=== PATIENT | female | born 1980 | race Caucasian/White ===

== ENCOUNTER 2024-10-28 14:01 | Outpatient (AMB) | payer OTHER, SELFPAY ==
--- OUTSIDE RECORDS SUMMARY | 2024-10-24 23:59 | XMS_ITS | Continuity of Care Document ---
Author Organization [facility] Primary Car e [address] Address [address] [place] [address]- Care Team Providers Care Bar Pointer Name Role Phone Benjamin Baltazar NP Primary Care Physician Encounter [facility] Date(s): 09/24/24 - 10/24/24 [facility] [address] [place], [place] [address] Encounter Type: Triage Allergies, Adverse Reactions, Alerts Substance Criticality Severity Reaction Reaction Severity Status naproxen Rash Active amoxicillin Active penicillins Active oxyCODONE Serum Sickness Activ e Vicodin Skin rash Active Latex Active OxyCODONE Hydrochloride Active Immunizations Given and Recorded Vaccine Date Status Refusal Reason SARS-CoV-2 (COVID-19) mRNA-1273 vaccine 03/10/21 R ecorded SARS-CoV-2 (COVID-19) mRNA-1273 vaccine 02/10/21 R ecorded influenza virus vaccine, inactivated 04/17/13 Thierno rded tetanus/diphtheria/pertussis, acel(Tdap) 01/19/12 Recorded Measles/Mumps/Rubella Virus Vaccine 06/17/01 Recor ded Measles/Mumps/Rubella Virus Vaccine 04/02/94 Recor ded hepatitis B adult vaccine 05/20/01 Recorded Medications B-12 2500 mcg oral tablet 1 tablet = 2,500 mcg, By Mouth, Daily, # 60 tablet, 0 Refills, Maintenance, 05/16/22 12:50:00 PM EST, Tablet, Partial fill upon patient request if the prescription is for a schedule II opioid drug. Start Date: 05/16/22 Status: Ordered Quantity: 60.0 Unit: tablet Repeat number: 1 Centrum Women 50 Plus Multigummies 0 Refills, Maintenance, 05/16/22 12:51:00 PM EST, Partial fill upon patient request if the prescription is for a schedule II opioid drug. Start Date: 05/16/22 Status: Ordered Repeat number: 1 Collagen 0 Refills, Maintenance, 05/16/22 12:49:00 PM EST, Partial fill upon patient request if the prescription is for a schedule II opioid drug. Start Date: 05/16/22 Status: Ordered Repeat number: 1 Folate Forte oral tablet 1 tablet, By Mouth, Daily, 0 Refills, Maintenance, 05/16/22 12:50:00 PM EST, Partial fill upon patient request if the prescription is for a schedule II opioid drug. Start Date: 05/16/22 Status: Ordered Repeat number: 1 magnesium aspartate = 1,230 mg, By Mouth, 2 times a day, 0 Refills, Maintenance, 05/16/22 12:51:00 PM EST, Partial fill upon patient request if the prescription is for a schedule II opioid drug. Start Date: 05/16/22 Status: Ordered Repeat number: 1 meclizine 25 mg oral tablet 1 tablet = 25 mg, By Mouth, 3 times a day, PRN for dizziness, # 60 tablet, 1 Refills, Maintenance, 09/22/24 1:46:00 PM EDT, Tablet, [facility]/pharmacy #[id number], Partial fill upon patient request if the prescription is for a schedule II opioid drug., 170, cm, 05/27/24 15:11:00 EST, Height Start Date: 09/22/24 Status: Ordered Quantity: 60.0 Unit: tablet Repeat number: 2 Indications: Benign paroxysmal vertigo, unspecified ear; Papaya 0 Refills, Maintenance, 05/16/22 12:50:00 PM EST, Partial fill upon patient request if the prescription is for a schedule II opioid drug. Start Date: 05/16/22 Status: Ordered Repeat number: 1 SUMAtriptan 100 mg oral tablet 1 tablet = 100 mg, By Mouth, Daily, PRN for migraine headache, may repeat dose after 2 hours up to a maximum of 2, # 18 tablet, 0 Refills, Maintenance, 05/17/23 7:31:00 AM EST, Tablet, Partial fill upon patient request if the prescription is for a schedule II opioid drug. Start Date: 05/17/23 Status: Ordered Quantity: 18.0 Unit: tablet Repeat number: 1 traMADol 50 mg oral tablet 60 each, 0 Refill(s), TAKE 1 TABLET BY MOUTH EVERY 12 HOURS NEEDED FOR PAIN FOR 30 DAYS, 0 Refills, 08/13/23 9:35:00 AM EDT, Partial fill upon patient request if the prescription is for a schedule II opioid drug. Start Date: 08/13/23 Status: Ordered Repeat number: 1 Wellbutrin XL 150 mg/24 hours oral tablet, extended release 1 tablet = 150 mg, By Mouth, Every 24 hours, # 90 tablet, 1 Refills, Maintenance, 09/24/24 6:58:00 AM EDT, ER Tablet, [facility]/pharmacy #[id number], Partial fill upon patient request if the prescription is for aschedule II opioid drug., 170, cm, 05/27/24 15:11:00 EST, Height Start Date: 09/24/24 Stop Date: 03/23/25 Status: Ordered Quantity: 90.0 Unit: tablet Repeat number: 2 Problem List Condition Confirmation Course Effective Dates Status Health St atus Informant B12 deficiency Confirmed Active Depression Confirmed Active Nipple discharge in female Confirmed Active Esophageal reflux (GERD) Confirmed Active Migraines Confirmed Active Obese class II Confirmed Active Varicose veins Confirmed Active Vitamin D deficiency Confirmed Active Social History Social History Type Response Smoking Status Former smoker, quit more than 30 days ago; Started at age: 17; Stopped at age: 21; entered on: 05/16/22 Sex Sex Representation Female (finding) Patient Care team information Care Team Personnel Name: Benjamin Baltazar NP Position: [facility] PCO Associate Professional Member Role: PCP Address: [address] [place] [address] Primary Care [place], [place] [address] Telecom: Name: Massiel Da Silva [place] Position: [facility] [place] Member Role: Lifetime Consulting Physician Care Team Related Persons Name: NITIN ISAAC Insurance Providers Guarantor name: REBECCA ISAAC [facility] Plan Information #: 1 Payer: MITALI RADHA [facility] Payer Identifier: NA Member Number: [id number] Group Number: [id number] Subscriber Identifier: [id number] Relationship to Subscriber: self Coverage Type: NA Coverage Verification Date: NA Telecom: NA Address:
--- NOTE | 2024-10-28 14:02 | A.OFFVIS_ITS ---
Vital Signs 10/28/24 14:06 Height 5 ft 7 in Intake Visit Reasons: 6m Allergies acetaminophen (From Vicodin) Allergy (Intermediate, Verified 10/28/24 14:06) Stomach Upset cortisone Allergy (Intermediate, Verified 10/28/24 14:06) Rash hydrocodone (From Vicodin) Allergy (Intermediate, Verified 10/28/24 14:06) Stomach Upset Medication List - Last Reconciled 10/28/24 by Lupe Armando, HALEY ibuprofen 400 mg PO Q6H PRN meclizine 25 mg PO TID PRN ondansetron 4 mg PO Q8H sumatriptan succinate take 1 tab at onset of headache; if no relief, may repeat 1 tab after at least 2 hrs; max = 2 tabs/24 hrs PO HPI Comments Details: Migraines have been about 2x/month, but increased this month. She had 12 migraines this month with photophobia, sonophobia, increased sensitivity to sound, dizziness, nausea, and vomiting. Gets some starbursts in vision before migraine. Unable to take sumatriptan due to nausea/vomiting. Using ondansetron. Triggers include bright lights, certain smells, and weather/pressure changes. She feels like hearing has gotten worse over the last 6 months. Tinnitus in both ears comes and goes throughout the day. No significant episodes of vertigo. Sleep was okay, getting about 7 hours/night. Stress was up and down. 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 No work performance issues, getting tasks done on time. She had hearing test with Dr. Velázquez in 2023 that was apparently normal, report not available. She has had tinnitus in both ears constantly since 08/2022 and had a bout of vertigo in 08/2022. Hx of migraine headaches, some of which are associated with visual disturbance, graying out or partial loss of vision for about 30 minutes, with intense pounding headache associated with nausea and vomiting on multiple occasions, along with photophobia and sonophobia. She has to go to bed in a quiet, dark room and cannot function. She used to get a few migraines in her childhood, but it had not been a problem until 08/2022. Around 2018, she had lumbar disc surgery with fusion at L5-S1 by Dr. Meehan. Her sisters have headaches. [facility] Medical History (Updated 10/28/24 @ 14:05 by Lupe Armando CNP) Tinnitus of both ears Arnold-Chiari malformation, type I Migraine Varicose vein of leg Surgical History S/P tonsillectomy and adenoidectomy History of shoulder surgery H/O spinal fusion Family History (Updated 10/28/24 @ 14:03 by Lupe Armando CNP) Sister Migraine Social History Alcohol intake: current Alcohol intake frequency: holidays/special occasions only Patient Tobacco Use Status: Former Tobacco user Review of Systems Const Denies chills, Denies daytime sleepiness, Reports difficulty sleeping, Denies fatigue, Denies fever(s), Denies frequent falls, Reports headache(s), Denies increased appetite, Denies poor appetite, Denies snoring, Denies weakness, Denies weight gain and Denies weight loss Eyes Denies loss of vision ENT Denies vertigo, Reports dizziness, Reports headache(s), Denies neck pain and Reports tinnitus Card Denies chest pain at rest, Denies chest pain with activity, Denies syncope, Denies leg edema, Denies palpitations, Denies dyspnea and Denies dyspnea on exertion Resp Denies cough, Denies dyspnea, Denies dyspnea on exertion and Denies snoring GI Denies abdominal pain, Denies constipation, Denies heartburn, Denies diarrhea and Denies nausea Denies urinary frequency, Denies urinary incontinence and Denies urinary urgency Musc Denies abnormal gait, Denies back pain, Denies myalgias, Denies arthralgias, Denies neck pain, Denies numbness and Denies tingling Neuro Denies abnormal gait, Denies vertigo, Reports dizziness, Denies syncope, Denies frequent falls, Reports headache(s), Denies lack of coordination, Denies loss of vision, Denies memory loss, Denies numbness, Denies Other visual disturbances, Denies restless legs, Denies seizure-like activity, Denies tingling, Denies par esthesias, Denies tremor(s) and Denies weakness Psych Denies anxiety, Reports depression, Denies auditory hallucinations, Denies memory loss and Denies visual hallucinations Endo Denies fatigue and Denies palpitations Physical Exam Const Other: General Appearance:? normal, in no acute distress. Heart:? S1, S2 normal, no murmurs. Lungs:? clear anteriorly and posteriorly. Musculoskeletal:? normal. Extremities:? no edema. Psych:? alert, oriented, cognitive function intact, cooperative with exam. Neuro Other: Abnormal Neurological Findings:?none.? Mental Status: alert and oriented X 3. Normal attention, orientation, memory, and affect. Cranial Nerves: Pupils are equal, round, and reactive to light. External ocular muscles are intact. Visual boland are full, no ptosis. Face is symmetrical, no facial weakness or droop. Facial sensations are normal. Tongue protrudes in midline. Palate elevates symmetrically. Shoulder shrugging is normal Motor Examination: Normal muscle tone, bulk and strength. No atrophy or fasciculations. No drift of the extended upper extremities. DTR 2+. Plantars are flexor. Straight Leg Raisin degrees. Sensory Exam: Normal light touch, temperature, pinprick, vibration, and joint- position sensations. Rhomberg sign is absent. Coordination: No ataxia. No titubation. Nugbrf-ig-lcex, yecz-bmnr-pwbx test, and rapid alternating movements were normal. Gait Exam: Within normal limits. Cerebellar Signs: Xljnvq-si-kptg and goji-zu-zadj is normal. No dysdiadochokinesia. Extrapyramidal System: No tremor, rigidity with normal facial expressions. No bradykinesia. No bradyphrenia. Normal arm swing and posture. No propulsion or retropulsion. Speech: Normal. No dysphasia or dysarthria. Results Reviewed Results Reviewed: 08/12/22 and 03/14/23 MRI of brain and C spine c/w Chiari 1 malformation with cerebellar tonsils 6mm below foramen magnum to top of C1 arch with crowding but no compression of brain stem. Assessment & Plan Assessment & Plan (1) Migraine: Code(s): G43.909 - Migraine, unspecified, not intractable, without status migrainosus Category: Medical Qualifiers: Migraine type: unspecified Status migrainosus presence: without status migrainosus Intractability: not intractable Qualified Code(s): G43.909 - Migraine, unspecified, not intractable, without status migrainosus Plan: She is unable to take sumatriptan due to nausea/vomiting. Start rizatriptan disintegrating tablet 10mg 1 tablet as needed for migraine Continue ondansetron 4mg 1 tablet as needed for nausea/vomiting (2) Arnold-Chiari malformation, type I: Code(s): G93.5 - Compression of brain Category: Medical (3) Tinnitus of both ears: Code(s): H93.13 - Tinnitus, bilateral Category: Medical Plan . Medications: New ondansetron 4 mg PO DAILY PRN 30 tabs 5RF nausea and vomiting 30 days rizatriptan take 1 tab at onset of headache; if no relief may repeat 1 tab after at least 4 hrs; max = 2 tabs/24 hr PO 10 tabs 5RF 30 days Discontinued sumatriptan succinate Discontinued Reason: Order take 1 tab at onset of headache; if no relief, may repeat 1 tab after at least 2 hrs; max = 2 tabs/24 hrs PO ondansetron Discontinued Reason: Order 4 mg PO Q8H Coding Level of Care Code Est Pt Level 4 (45284) Diagnoses Migraine without status migrainosus, not intractable, unspecified migraine type G43.909 Migraine type: unspecified Status migrainosus presence: without status migrainosus Intractability: not intractable Arnold-Chiari malformation, type I G93.5 Tinnitus of both ears H93.13
--- OUTSIDE RECORDS SUMMARY | 2024-10-28 14:45 | XMS_ITS | Clinical Summary ---
Author Organization [facility] Address [address] [place] [address] Care Team Providers Care Receiver Stocker Name Role Phone Lilly Jacobson POWER PRESS OPERATOR Primary Care Provider [phone] Allergies Active Allergy Reactions Criticality Noted Date Comments Latex Rash Low 02/05/2023 Medications Medication Sig Dispensed Refills Start Date End Date Status escitalopram (LEXAPRO) 5 MG tablet Take 1 tablet (5 mg total) by mouth daily. 0 Active traMADol (ULTRAM) 50 MG tablet Take 50 mg by mouth daily as needed. 0 02/06/2023 Active Family History Medical History Relation Name Comments Diabetes Father Hypertension Mother Relation Name Status Comments Father Mother Social History Tobacco Use Types Packs/Day Years Used Date Smoking Tobacco: Former Cigarettes 0.5 5 Q uit: 1999 Smokeless Tobacco: Never Alcohol Use Standard Drinks/Week Comments Not Currently 0 (1 standard drink = 0.6 oz pur e alcohol) Sex and Gender Information Value Date Recorded Sex Assigned at Female 02/05/2023 2:13 PM EST Gender Identity Not on file Sexual Orientation Not on file Job Start Date Occupation Industry Not on file Not on file Not on file Last Filed Vital Signs Vital Sign Reading Time Taken Comments Blood Pressure 124/77 02/14/2023 10:54 AM EST Pulse 61 02/14/2023 10:54 AM EST Temperature 36.7 C (98 F) 02/14/2023 10:28 AM EST Respiratory Rate 13 02/14/2023 10:54 AM EST Oxygen Saturation 98% 02/14/2023 10:54 AM EST Inhaled Oxygen Concentration - - Weight 96.2 kg (212 lb) 02/14/2023 8:47 AM EST Height 170.2 cm (5' 7 ) 02/14/2023 8:47 AM EST Body Mass Index 33.2 02/14/2023 8:47 AM EST Plan of Treatment Not on file Care Teams Receiver Stocker Relationship Specialty Start Date End Date Lilly Jacobson POWER PRESS OPERATOR [address] [place] [id number] PCP - General Family Medicine 02/06/23
--- OUTSIDE RECORDS SUMMARY | 2024-10-28 14:45 | XMS_ITS | Referral Summary ---
Author Organization [facility] Address [address] [place] [address] Care Team Providers Care Electronic Science Teacher Name Role Phone Lilly Jacobson WOODWORK SALVAGE INSPECTOR Primary Care Provider [phone] Allergies Active Allergy Reactions Criticality Noted Date Comments Cortisone Back pain,Blood pres sure, low,Fatigue,Fever,Headache, Hot flashes,Lightheadedness,Res piratory Distress High 12/15/2022 Hydrocodone-Acetaminophen Rash 12/15/2022 Latex Itching,Rash 12/15/2022 Naproxen Hives 12/15/2022 Oxycodone Serum Sickness High 12/15/2022 Penicillins Unknown 12/15/2022 Medications cyanocobalamin, vitamin B-12, 2,500 mcg tablet,chewable Chew and swallow 2,500 mcg by mouth. daily 3 Active folic acid 50 mcg/mL solution Take 1 tablet by mouth. 3 Active cyclobenzaprine (FLEXERIL) 5 mg tablet SMARTSI Tablet(s) By Mouth 3 Times Daily PRN 3 Active escitalopram (LEXAPRO) 10 mg tablet Take 1 tablet by mouth. 3 Active CARICA PAPAYA ORAL 0 Refills, Maintenance, 05/16/22 12:50:00 EST, Partial fill upon patient request if the prescription is for a schedule II opioid drug. 3 Active Active Problems Problem Noted Date Diagnosed Date Migraine without aura and wi thout status migrainosus, not intractable 12/15/2022 Assessment & Plan (12/15/2022 5:13 PM EDT): The patient is a 42 y/o F presenting with a complaint of headaches and an abnormal MRI of the brain. She endorses a history of migraines for the past 3 years. The headache typically starts at the back of her neck and radiates towards the eyes. She experiences a throbbing pain behind the eyes accompanied by nausea and vomiting, as well as photophobia and phonophobia. The headaches were rather sporadic in occurrence but this past August, she experienced a severe headache that was preceded by a visual event which she described as like a galan shade obscuring half of her visual field. At the same time she noted that she was inverting the word order in some of her sentences. Since then, she has had headaches about 3x/month. She also reports feeling nauseated and fatigued in general. MRI of the brain showed descent of the cerebellar tonsils about 7 mm below the foramen magnum compatible with a Chiari I malformation. Her neurologic examination is normal. She does not have the typical symptoms associated with a symptomatic Chiari - e.g. cough headache, brainstem signs such as hoarseness or dysarthria, or cerebellar signs such as scanning speech and truncal ataxia. Consequently I do not think that the Chiari malformation is causing her headaches. I rather suspect that her headaches are still part of a migraine syndrome. As the migraines are relatively infrequent, she may continue to simply take analgesics as needed. I counseled her on signs and symptoms of a symptomatic Chiari. Follow-up as needed. Arnold-Chiari malformation 12/15/2022 Social History Tobacco Use Types Packs/Day Years Used Date Smoking Tobacco: Never Assessed Comments Unknown Sex and Gender Information Value Date Recorded Sex Assigned at Female 12/10/2022 9:16 AM EDT Legal Sex Female 12:00 AM EDT Gender Identity Female 12/10/2022 9:16 AM EDT Sexual Orientation Straight 12/10/2022 9: 16 AM EDT Last Filed Vital Signs Vital Sign Reading Time Taken Comments Blood Pressure 131/91 12/15/2022 2:24 PM EDT Pulse 67 12/15/2022 2:24 PM EDT Temperature - - Respiratory Rate - - Oxygen Saturation 98% 12/15/2022 2:24 PM EDT Inhaled Oxygen Concentration - - Weight 103.9 kg (229 lb) 12/15/2022 2:24 PM EDT Height - - Body Mass Index - - Plan of Treatment Not on file Insurance [facility] HMO/POS Care Teams Electronic Science Teacher Relationship Specialty Start Date End Date Lilly Jacobson NP [address] [address] PCP - General Nurse Practitioner Family 08/29/22
--- OUTSIDE RECORDS SUMMARY | 2024-10-28 14:45 | XMS_ITS | Clinical Summary ---
Author Organization [facility] [place] [address] Care Team Providers Care Packing Line Operator Name Role Phone Lilly Jacobson NP Primary Care Provider [phone] Surgical History Surgery Date Site/Laterality Comments TONSILLECTOMY PROCEDURE:TONSILLECTOMY BACK SURGERY PROCEDURE:BACK SURGERY TOTAL SHOULDER ARTHROPLASTY PROCEDURE:TOTAL SHOULDER ARTHROPLASTY FOOT FASCIOTOMY 02/14/2023 Right PROCEDURE:FASCIOTOMY FOOT / TOE;COMMENT:Procedure: RIGHT FASCIOTOMY FOOT / TOE; Surgeon: Jimmy Varela DPM; [place] [facility]; Service: Podiatry; Laterality: Right; Medical History Medical History Date Comments Anxiety DX:Anxiety Depression DX:Depression Chiari I malformation (CMS/HCC V24, CMS/HCC V28) DX:Chiari I malformation (HCC) Right shoulder injury DX:Right s houlder injury Family History Medical History Relation Name Comments Diabetes Father Hypertension Mother Relation Name Status Comments Father Mother Social History Tobacco Use Types Packs/Day Years Used Date Smoking Tobacco: Former Cigarettes Q uit: 04/02/1999 Smokeless Tobacco: Never Alcohol Use Standard Drinks/Week Comments Not Currently 0 (1 standard drink = 0.6 oz pur e alcohol) Comments Unknown Sex and Gender Information Value Date Recorded Sex Assigned at Not on file Legal Sex Female 8:42 AM EST Gender Identity Not on file Sexual Orientation Not on file Obstetrics History Plan of Treatment Health Maintenance Due Date Last Done Comments Breast Cancer Screening 1981 Hepatitis B Vaccines (2 of 3 - 19+ 3-dose series) 06/17/2001 05/20/2001 Cervical Cancer Screening: P ap Smear 2002 DTaP,Tdap,and Td Vaccines (2 - Td or Tdap) 01/18/2022 01/19/2012 Cholesterol Screening (Lipid Panel) 03/05/2022 HIV Screening 03/05/2022 Hepatitis C Screening 03/05/2022 Social Influencers of Health Screening 03/05/2022 COVID-19 Vaccine (3 - 2023-2 5 season) 2023 03/10/2021, 02/10/2021 Depression Screening 04/02/2024 Influenza Vaccine (#1) 2024 04/17/2013 MMR Vaccines Aged Out 06/17/2001 No longer eligi ble based on patient's age to complete this topic HIB Vaccines Aged Out No longer eligi ble based on patient's age to complete this topic HPV Vaccines Aged Out No longer eligi ble based on patient's age to complete this topic Hepatitis A Vaccines Aged Out No long er eligible based on patient's age to complete this topic IPV Vaccines Aged Out No longer eligi ble based on patient's age to complete this topic Meningococcal ACWY Vaccine Aged Out N o longer eligible based on patient's age to complete this topic Meningococcal B Vaccine Aged Out No l onger eligible based on patient's age to complete this topic Pneumococcal Vaccine: Pediatrics (0 to 5 Years) and At-Risk Patients (6 to 49 Years) Aged Out No longer eligible b ased on patient's age to complete this topic RSV Immunization Patients Under 20 months Aged Out No longer eligible b ased on patient's age to complete this topic Varicella Vaccines Aged Out No longer eligible based on patient's age to complete this topic Care Teams Packing Line Operator Relationship Specialty Start Date End Date Lilly Jacobson NP [address] [place] [phone] PCP - General 02/06/23
--- OUTSIDE RECORDS SUMMARY | 2024-10-28 14:45 | XMS_ITS ---
Author Name [facility] Unknown Encounters Encounter Type Encounter Reason Primary Diagnosis Location Date Ambulatory Plantar fascial fibromatosis Plantar fascial fibromatosis [facility] 02/14/2023 Care Team Organization Name Specialty Phone Email Start Date End Da te [facility] 01/31/2023 08/10/2024 [facility] Termed, PROVIDER Primary Care 02/07/202210/31 [facility]
== END 2024-10-28 14:30 | disposition home or self-care (01) ==
LOC: HO.HSM 14:01
PROVIDERS: PCP Registered Nurse; Referring Provider Internal Medicine; Visit Provider Registered Nurse
DX: G43.909 Migraine, unspecified, not intractable, without status migrainosus (principal); G93.5 Compression of brain; H93.13 Tinnitus, bilateral
CPT/HCPCS: 99214

== ENCOUNTER 2025-01-27 14:30 | Outpatient (AMB) | payer OTHER, SELFPAY ==
--- NOTE | 2025-01-27 14:35 | A.OFFVIS_ITS ---
Intake Visit Reasons: 3m Migraine Allergies acetaminophen (From Vicodin) Allergy (Intermediate, Verified 01/27/25 14:38) Stomach Upset cortisone Allergy (Intermediate, Verified 01/27/25 14:38) Rash hydrocodone (From Vicodin) Allergy (Intermediate, Verified 01/27/25 14:38) Stomach Upset Medication List - Last Reconciled 01/27/25 by Lupe Armando, HALEY bupropion HCl XL 150 mg PO DAILY ibuprofen 400 mg PO Q6H PRN meclizine 25 mg PO TID PRN ondansetron 4 mg PO DAILY PRN 30 days rizatriptan take 1 tab at onset of headache; if no relief may repeat 1 tab after at least 4 hrs; max = 2 tabs/24 hr PO 30 days HPI Comments Details: She was doing okay. She had about 10 migraines total over last 2 months. Rizatriptan as needed helped. Sleep was okay. 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 Previously, migraines were about 2x/month. She had 12 migraines in 09/2024 with photophobia, sonophobia, dizziness, nausea, and vomiting. Gets some starbursts in vision before migraine. Unable to take sumatriptan due to nausea/vomiting. Using ondansetron. Triggers include bright lights, certain smells, and weather/pressure changes. She feels like hearing has gotten worse over the last 6 months. Tinnitus in both ears comes and goes throughout the day. No significant episodes of vertigo. Sleep was okay, getting about 7 hours/night. Stress was up and down. 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 No work performance issues, getting tasks done on time. She had hearing test with Dr. Velázquez in 2023 that was apparently normal, report not available. She has had tinnitus in both ears constantly since 08/2022 and had a bout of vertigo in 08/2022. Hx of migraine headaches, some of which are associated with visual disturbance, graying out or partial loss of vision for about 30 minutes, with intense pounding headache associated with nausea and vomiting on multiple occasions, along with photophobia and sonophobia. She has to go to bed in a quiet, dark room and cannot function. She used to get a few migraines in her childhood, but it had not been a problem until 08/2022. Around 2018, she had lumbar disc surgery with fusion at L5-S1 by Dr. Meehan. Her sisters have headaches. [facility] Medical History (Updated 10/28/24 @ 14:05 by Lupe Armando CNP) Tinnitus of both ears Arnold-Chiari malformation, type I Migraine Varicose vein of leg Surgical History S/P tonsillectomy and adenoidectomy History of shoulder surgery H/O spinal fusion Family History (Updated 10/28/24 @ 14:03 by Lupe Armando CNP) Sister Migraine Social History Alcohol intake: current Alcohol intake frequency: holidays/special occasions only Patient Tobacco Use Status: Former Tobacco user Review of Systems Const Denies chills, Denies daytime sleepiness, Denies difficulty sleeping, Reports fatigue, Denies fever(s), Denies frequent falls, Reports headache(s), Denies increased appetite, Denies poor appetite, Denies snoring, Denies weakness, Denies weight gain and Denies weight loss Eyes Denies loss of vision ENT Denies vertigo, Reports dizziness, Reports headache(s) and Reports neck pain Card Denies chest pain at rest, Denies chest pain with activity, Denies syncope, Denies leg edema, Denies palpitations, Denies dyspnea and Denies dyspnea on exertion Resp Denies cough, Denies dyspnea, Denies dyspnea on exertion and Denies snoring GI Denies abdominal pain, Denies constipation, Denies heartburn, Denies diarrhea and Denies nausea Denies urinary frequency, Denies urinary incontinence and Denies urinary urgency Musc Denies abnormal gait, Denies back pain, Denies myalgias, Denies arthralgias, Reports neck pain, Denies numbness and Denies tingling Neuro Denies abnormal gait, Denies vertigo, Reports dizziness, Denies syncope, Denies frequent falls, Reports headache(s), Denies lack of coordination, Denies loss of vision, Denies memory loss, Denies numbness, Denies Other visual disturbances, Denies restless legs, Denies seizure-like activity, Denies tingling, Denies paresthesias, Denies tremor(s) and Denies weakness Psych Denies anxiety, Reports depression, Denies auditory hallucinations, Denies memory loss and Denies visual hallucinations Endo Reports fatigue and Denies palpitations Physical Exam Const Other: General Appearance:? normal, in no acute distress. Heart:? S1, S2 normal, no murmurs. Lungs:? clear anteriorly and posteriorly. Musculoskeletal:? normal. Extremities:? no edema. Psych:? alert, oriented, cognitive function intact, cooperative with exam. Neuro Other: Abnormal Neurological Findings:?none.? Mental Status: alert and oriented X 3. Normal attention, orientation, memory, and affect. Cranial Nerves: Pupils are equal, round, and reactive to light. External ocular muscles are intact. Visual boland are full, no ptosis. Face is symmetrical, no facial weakness or droop. Facial sensations are normal. Tongue protrudes in midline. Palate elevates symmetrically. Shoulder shrugging is normal Motor Examination: Normal muscle tone, bulk and strength. No atrophy or fasciculations. No drift of the extended upper extremities. DTR 2+. Plantars are flexor. Sensory Exam: Normal light touch, temperature, pinprick, vibration, and joint- position sensations. Rhomberg sign is absent. Coordination: No ataxia. No titubation. Gait Exam: Within normal limits. Cerebellar Signs: [id number] is okay. Extrapyramidal System: No tremor, rigidity with normal facial expressions. No bradykinesia. No bradyphrenia. Normal arm swing and posture. No propulsion or retropulsion. Speech: Normal. Results Reviewed Results Reviewed: 08/12/22 and 03/14/23 MRI of brain and C spine c/w Chiari 1 malformation with cerebellar tonsils 6mm below foramen magnum to top of C1 arch with crowding but no compression of brain stem. Assessment & Plan Assessment & Plan (1) Migraine: Code(s): G43.909 - Migraine, unspecified, not intractable, without status migrainosus Category: Medical Qualifiers: Migraine type: unspecified Status migrainosus presence: without status migrainosus Intractability: not intractable Qualified Code(s): G43.909 - Migraine, unspecified, not intractable, without status migrainosus Plan: Continue rizatriptan disintegrating tablet 10mg 1 tablet as needed for migraine. Continue ondansetron 4mg 1 tablet as needed for nausea/vomiting. (2) Arnold-Chiari malformation, type I: Code(s): G93.5 - Compression of brain Category: Medical (3) Tinnitus of both ears: Code(s): H93.13 - Tinnitus, bilateral Category: Medical Plan Meds tried: sumatriptan Medications: New ondansetron 8 mg PO DAILY PRN 15 tabs 5RF nausea and vomiting 30 days Refilled rizatriptan take 1 tab at onset of headache; if no relief may repeat 1 tab after at least 4 hrs; max = 2 tabs/24 hr PO 10 tabs 5RF 30 days Discontinued ondansetron Discontinued Reason: Doctor's Order 4 mg PO DAILY 30 days PRN 30 tabs 5RF nausea and vomiting Coding Level of Care Code Est Pt Level 4 (97009) Diagnoses Migraine without status migrainosus, not intractable, unspecified migraine type G43.909 Migraine type: unspecified Status migrainosus presence: without status migrainosus Intractability: not intractable Arnold-Chiari malformation, type I G93.5 Tinnitus of both ears H93.13
--- OUTSIDE RECORDS SUMMARY | 2025-01-27 18:55 | XMS_ITS | Clinical Summary ---
Author Organization [facility] Address [address] [place] [address] Care Team Providers Care Poising Inspector Name Role Phone Lilly Jacobson SAS BI DEVELOPER Primary Care Provider [phone] Allergies Active Allergy Reactions Criticality Noted Date [...] Mass Index - - Plan of Treatment Health Maintenance Due Date Last Done Comments Cervical Cancer Screening 1981 HIV Screening 1981 HPV and Pap Smear 1981 Hepatitis C Screening 1981 Pap Smear 1981 Varicella Vaccines (1 of 2 - 13+ 2-dose series) 1994 Hepatitis B Vaccines (2 of 3 - 19+ 3-dose series) 06/17/2001 05/20/2001 Mammogram 2021 DTaP,Tdap,and Td Vaccines (2 - Td or Tdap) 01/18/2022 01/19/2012 Alcohol/Substance Use Screening 04/02/2024 Depression Screening and Follow-Up 04/02/2024 Social Drivers of Health Annual Screening 04/02/2024 COVID-19 Vaccine (3 - 2024-2 6 season) 2024 03/10/2021, 02/10/2021 Influenza Vaccine (#1) 2024 04/17/2013 RSV Vaccine (60+ years old and patients) (1 - 1-dose 75+ series) 2056 Pneumococcal Vaccine: Pediatric (0-5 Years) and At-Risk Patients (6-50 Years) Aged Out No longer eligible based on patient's age to complete this topic Insurance [facility] HMO/POS Care Teams Poising Inspector Relationship Specialty Start Date End Date Lilly Jacobson NP [address] [address] PCP - General Nurse Practitioner Family 08/29/22
--- OUTSIDE RECORDS SUMMARY | 2025-01-27 18:55 | XMS_ITS | Clinical Summary ---
Author Organization [facility] Address [address] [place] [address] Care Team Providers Care Event Av Operator Name Role Phone Lilly Jacobson DISC RULER OPERATOR Primary Care Provider [phone] Allergies Active Allergy Reactions Criticality Noted Date [...] of Treatment Not on file Care Teams Event Av Operator Relationship Specialty Start Date End Date Lilly Jacobson DISC RULER OPERATOR [address] [place] [id number] PCP - General Family Medicine 02/06/23
--- OUTSIDE RECORDS SUMMARY | 2025-01-27 18:55 | XMS_ITS | Clinical Summary ---
Author Organization [facility] [address] Care Team Providers Care Web Services Architect Name Role Phone Lilly Jacobson NP Primary Care Provider [phone] Surgical History Surgery Date Site/Laterality Comments TONSILLECTOMY PROCEDURE:TONSILLECTOMY BACK SURGERY PROCEDURE:BACK SURGERY TOTAL SHOULDER ARTHROPLASTY PROCEDURE:TOTAL SHOULDER ARTHROPLASTY FOOT FASCIOTOMY 02/14/2023 Right PROCEDURE:FASCIOTOMY FOOT / TOE;COMMENT:Procedure: RIGHT FASCIOTOMY FOOT / TOE; Surgeon: Jimmy Varela DPM; Location: [facility] [place] [facility]; Service: Podiatry; Laterality: Right; Medical [...] Cervical Cancer Screening: P ap Smear 2002 HPV Vaccines (1 - 3-dose SCD M series) 2008 DTaP,Tdap,and Td Vaccines (2 - Td or Tdap) 01/18/2022 01/19/2012 Cholesterol Screening (Lipid Panel) 03/05/2022 HIV Screening 03/05/2022 Hepatitis C Screening 03/05/2022 Social Influencers of Health Screening 03/05/2022 Depression Screening 04/02/2024 COVID-19 Vaccine (3 - 2024-2 6 season) 2024 03/10/2021, 02/10/2021 Influenza Vaccine (#1) 2024 04/17/2013 RSV Immunization Adult Patients (1 - 1-dose 75+ series) 2056 MMR Vaccines Aged Out 06/17/2001 No longer [...] age to complete this topic Care Teams Web Services Architect Relationship Specialty Start Date End Date Lilly Jacobson NP [address] [place] [phone] PCP - General 02/06/23
--- OUTSIDE RECORDS SUMMARY | 2025-01-27 18:55 | XMS_ITS | Encounter Summary ---
Author Organization [facility] Address [address] [place] [address] Care Team Providers Care Hot Bread Baker Name Role Phone Lilly Jacobson NP Primary Care Provider [phone] Reason for Visit * Reason Onset Date Comments cs referral 09/05/2022 Just for documen tation. PT is calling to see if her referral is in. Encounter Details Date Type Department Care Team (Late st Contact Info) Description 09/05/2022 Telephone [facility] Central Scheduling Department [address] [place] [id number] Telephone Intake, Staff cs referral (Just for documentation. PT is calling to see if her referral is in. ) Social History Tobacco Use Types Packs/Day Years Used Date Smoking Tobacco: Never Assessed Comments Unknown Sex and Gender Information Value Date Recorded Sex Assigned at Female 12/10/2022 9:16 AM EDT Legal Sex Female 12:00 AM EDT Gender Identity Female 12/10/2022 9:16 AM EDT Sexual Orientation Straight 12/10/2022 9: 16 AM EDT documented as of this encounter Plan of Treatment Not on file documented as of this encounter Visit Diagnoses Not on filedocumented in this encounter Care Teams Hot Bread Baker Relationship Specialty Start Date End Date Lilly Jacobson NP [address] [phone] PCP - General Nurse Practitioner Family 08/29/22 documented as of this encounter
== END 2025-01-27 14:52 | disposition home or self-care (01) ==
LOC: HO.HSM 14:31
PROVIDERS: PCP Registered Nurse; Visit Provider Registered Nurse
DX: G43.909 Migraine, unspecified, not intractable, without status migrainosus (principal); G93.5 Compression of brain; H93.13 Tinnitus, bilateral
CPT/HCPCS: 99214